=== PATIENT | female | born 1975 | race Caucasian/White ===

== ENCOUNTER 2016-04-24 14:46 | Emergency (ER) | payer BC, SELFPAY ==
[2016-04-24 16:09] LABS: Troponin I Less than 0.010 ng/mL (< 0.028)
[2016-04-24] MEDS ORDERED: Magnesium Citrate 300 ML BOT ONE (16:49)
--- NOTE | 2016-04-24 17:53 | ERRECORD ---
[facility] EMERGENCY RECORD HPI CHEST PAIN (15:13 WMEI) CHIEF COMPLAINT: Patient presents for evaluation of chest pain, ongoing. HISTORIAN: History provided by patient. LOCATION: Symptoms are localized, most severe in the left upper chest. QUALITY: Pain is dull in nature. TIME COURSE: Gradual onset of symptoms, Date and time of onset was 04/23/2016 15:13. ASSOCIATED WITH: No associated chills, No associated cough, No associated diaphoresis, No associated fever, No associated nausea, No associated shortness of breath. EXACERBATED BY: Patient's condition exacerbated by nothing. RELIEVED BY: Patient's condition relieved by nothing. ROS (15:14 WMEI) CONSTITUTIONAL: Historian denies chills, denies fever. EYES: Historian denies eye pain, denies eye discharge. ENT: Historian denies rhinorrhea, denies sore throat. CARDIOVASCULAR: Historian reports chest pain, denies diaphoresis, denies orthopnea. GI: Historian denies nausea, denies vomiting. MUSCULOSKELETAL: Historian denies joint redness, reports joint stiffness, denies joint swelling. SKIN: Historian denies skin changes, denies skin lesions. NEUROLOGIC: Historian denies dizziness, denies mental status changes. ALLERGIC/IMMUNOLOGIC: Historian denies eczema, denies food allergies. PSYCHIATRIC: Historian denies alcohol abuse. PAST MEDICAL HISTORY (14:55 KMOR) MEDICAL HISTORY: Flu vaccine up to date, Tetanus immunization up to date, Pneumococcal vaccine not up to date, Notes: MIXED CONNECTIVE TISSUE DISORDER, VERTIGO. FEMALE SURGICAL HISTORY: RIGHT FOOT ORIF, Surgical history of oophorectomy, of the left ovary. PSYCHIATRIC HISTORY: No previous psychiatric history. SOCIAL HISTORY: Patient denies alcohol use, Patient denies drug use, Patient has no smoking history. KNOWN ALLERGIES morphine: Reaction: Anaphylaxis, Severity: Severe CURRENT MEDICATIONS Plaquenil: TABLET : Strength - 200 mg : ORAL Patient Dose: 800 mg Oral once a day. (15:02 KMOR) Cymbalta: CAPSULE,DELAYED RELEASE (ENTERIC COATED) : Strength - 30 mg : ORAL &a-1R&a+25V*p+0X*o1740Y*c202B*c15G*c2P*p-0X&a-25V&a+1R Name: Kathy Olivo : 1975 F41 MedRec: [id number] AcctNum: [id number] Prepared: Karen Apr 24, 2016 22:58 by Interface Page 1 of 3 pMD [facility] EMERGENCY RECORD Patient Dose: 800 mg Oral. (15:03 KMOR) methotrexate: POWDER (GRAM) : MISCELLANEOUS Patient Dose: 25 units once a week. (15:05 KMOR) Folbic: TABLET : Strength - 2 mg-2.5 mg-25 mg : ORAL Patient Dose: Unknown. (15:06 KMOR) VITAL SIGNS VITAL SIGNS: BP: 145/74, Pulse: 78, Resp: 18, Temp: 98.2 (Oral), Pain: 5, O2 sat: 96 on Room Air, Time: 04/24/2016 14:53. (14:53 KMOR) BP: 122/79, Pulse: 82, Resp: 18, Pain: 5, O2 sat: 99 on Room Air, Time: 04/24/2016 15:53. (15:53 AHOO) BP: 140/77, Pulse: 80, Resp: 18, Temp: 98.3 (Oral), O2 sat: 97 on Room Air, Time: 04/24/2016 17:12. (17:12 KMOR) Pain: 5, Time: 04/24/2016 17:25. (17:25 AHOO) PHYSICAL EXAM (15:17 WMEI) CONSTITUTIONAL: Vital Signs Reviewed, Patient appears non toxic, Patient alert and oriented to person, place and time. HEAD: Head exam included findings of head atraumatic, normocephalic. EYES: Conjunctiva normal, Sclera normal. ENT: Ear exam normal, Nose exam normal, Pharynx exam normal. NECK: Neck exam included findings of normal range of motion, Trachea midline. RESPIRATORY CHEST: Respiratory exam included findings of no respiratory distress, Breath sounds clear, Chest exam included findings of chest movement symmetrical. CARDIOVASCULAR: Heart rate regular rate and rhythm, Heart sounds normal. ABDOMEN FEMALE: Abdominal exam included findings of abdomen nontender, Liver normal, Spleen normal. UPPER EXTREMITY: Upper extremity exam included findings of inspection normal, Range of motion normal, Motor strength normal. NEURO: Edward coma scale 15, Neuro exam findings include patient oriented to person, place and time, Speech normal, Gait normal. SKIN: Skin exam included findings of skin warm, dry. LYMPHATIC: Lymphatic exam normal. PSYCHIATRIC: Psychiatric exam included findings of patient oriented to person place and time, Normal affect, Judgment normal, Insight normal. 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 MEDICATION ADMINISTRATION SUMMARY Drug Name: aspirin oral, Dose Ordered: 324 mg, Route: Oral, Status: &a-1R&a+25V*p+0X*w2685M*c202B*c15G*c2P*p-0X&a-25V&a+1R Name: Kathy Olivo : 1975 1 MedRec: [id number] AcctNum: [id number] Prepared: ThuApr 24, 2016 22:58 by Interface Page 2 of 3 pMD [facility] EMERGENCY RECORD Given, Time: 15:32 04/24/2016, Detailed record available in Medication Service section. PROBLEM LIST No recorded problems DIAGNOSIS (17:21 WMEI) FINAL: PRIMARY: Chest Pain, unspecified. PRESCRIPTION No recorded prescriptions DISPOSITION PATIENT: Disposition Type: Discharge, Disposition: *Discharge Home. (17:21 WMEI) Patient left the department. (17:36 AHOO) Pope: AHOO=JEN Ocampo, July KMOR=JOEY Blum, Evi WMEI=DO Arciniega William &a-1R&a+25V*p+0X*m5019J*c202B*c15G*c2P*p-0X&a-25V&a+1R Name: Kathy Olivo Tanner : 1975 Counts Include [facility] B[facility] At [facility] MedRec: [id number] AcctNum: [id number] Prepared: ThuApr 24, 2016 22:58 by Interface Page 3 of 3 pMD MTDD
--- NOTE | 2016-04-24 17:53 | PICIS ---
[facility] EMERGENCY RECORD TRIAGE (ThuApr 24, 2016 14:52 KMOR) TRIAGE NOTES: Left sided chest pain, seen at urgent care this morning and chest xray and ekg completed, called and told had an elevated ddimer and needed come in for work. (ThuApr 24, 2016 14:52 KMOR) PATIENT: NAME: Kathy Olivo, AGE: 41, GENDER: female, : Thu1975, TIME OF GREET: ThuApr 24, 2016 14:47, PREFERRED LANGUAGE: Tajik, ETHNICITY: Not or , ECODE BILLING MAP: [facility], SSN: [id number], Zip Code: [address], KG WEIGHT: 76.20, PHONE: , , , PERSON ID: [id number], PCP: DO CABRERA KRISTEL. (ThuApr 24, 2016 14:52 KMOR) PAYMENT: [employer]. (15:00) COMPLAINT: HIGH RISK COMPLAINT: Chest Pain. (ThuApr 24, 2016 14:52 KMOR) ADMISSION: URGENCY: 3 Urgent, ADMISSION SOURCE: Home, TRANSPORT: CAR, BED: ER -03. (ThuApr 24, 2016 14:52 KMOR) ASSESSMENT: Assessment: A&XO4. RR EVEN AND UNLABORED. (14:55 KMOR) PAIN: Patient complains of pain described as, aching, on a scale 0-10 patient rates pain as 5, Location LEFT CHEST. (14:55 KMOR) SIRS SCORING: Heart Rate 55-109 (0), Temp range 96.8-101.1 (0), respiratory rate 12-24 (0), Mental Status altered: no (0), Infection or Suspected Infection: No. (14:55 KMOR) TRIAGE SCREENING: Patient denies suicidal ideation, Patient denies presence of domestic violence. (14:55 KMOR) LMP: Last menstrual period: 04/10/2016. (14:55 KMOR) PROVIDERS: TRIAGE NURSE: Evi Blum RN. (Karen Apr 24, 2016 14:52 KMOR) VITAL SIGNS: BP 145/74, Pulse 78, Resp 18, Temp 98.2, (Oral), Pain 5, O2 Sat 96, on Room Air, Time 04/24/2016 14:53. (14:53 KMOR) PREVIOUS VISIT ALLERGIES: morphine. (ThuApr 24, 2016 14:52 KMOR) morphine. (14:55 KMOR) KNOWN ALLERGIES morphine: Reaction: Anaphylaxis, Severity: Severe CURRENT MEDICATIONS Plaquenil: TABLET : Strength - 200 mg : ORAL Patient Dose: 800 mg Oral once a day. (15:02 KMOR) Cymbalta: CAPSULE,DELAYED RELEASE (ENTERIC COATED) : Strength - 30 mg : ORAL Patient Dose: 800 mg Oral. (15:03 KMOR) methotrexate: POWDER (GRAM) : MISCELLANEOUS Patient Dose: 25 units once a week. (15:05 KMOR) Folbic: TABLET : Strength - 2 mg-2.5 mg-25 mg : ORAL &a-1R&a+25V*p+0X*u0540E*c202B*c15G*c2P*p-0X&a-25V&a+1R Name: GeovaniYazanKathy L : 1975 F41 MedRec: [id number] AcctNum: [id number] Prepared: ThuApr 24, 2016 23:04 by Interface Page 1 of 7 pMD [facility] EMERGENCY RECORD Patient Dose: Unknown. (15:06 KMOR) VITAL SIGNS VITAL SIGNS: BP: 145/74, Pulse: 78, Resp: 18, Temp: 98.2 (Oral), Pain: 5, O2 sat: 96 on Room Air, Time: 04/24/2016 14:53. (14:53 KMOR) BP: 122/79, Pulse: 82, Resp: 18, Pain: 5, O2 sat: 99 on Room Air, Time: 04/24/2016 15:53. (15:53 AHOO) BP: 140/77, Pulse: 80, Resp: 18, Temp: 98.3 (Oral), O2 sat: 97 on Room Air, Time: 04/24/2016 17:12. (17:12 KMOR) Pain: 5, Time: 04/24/2016 17:25. (17:25 AHOO) NURSING ASSESSMENT: CARDIOVASCULAR (16:28 KMOR) CONSTITUTIONAL: Patient arrives ambulatory, Gait steady, History obtained from patient, Patient appears comfortable, Patient cooperative, Patient alert, Oriented to person, place and time, Skin warm, Skin dry, Skin normal in color, Mucous membranes pink, Mucous membranes moist, Patient is well-groomed, Patient complains of Elevated ddimer, Patient reports she was seen at an urgent care today for chest pain, reports was called to come to [facility] due to elevated Ddimer. PAIN: deep pain, to the left chest, on a scale 0-10 patient rates pain as 5. CARDIOVASCULAR: Cardiovascular assessment findings include heart rate normal, Heart rhythm normal sinus, Heart sounds normal, S1, S2, Left radial pulse +3(easily palpated, considered normal), Right radial pulse +3(easily palpated, considered normal), no associated dizziness, no associated edema, no associated palpitations, no associated syncopal episode. RESPIRATORY/CHEST: Breath sounds clear, Respiratory assessment findings include respiratory effort easy, Respirations regular, Conversing normally, Neck and chest exam findings include trachea midline, Chest expansion equal, Chest movement symmetrical, no signs of distress, no associated cough noted. NOTES: Patient tolerated procedure well. NURSING PROCEDURE: DISCHARGE NOTE (17:27 AHOO) DISCHARGE: Patient discharged to home, ambulating without assistance, driving self, unaccompanied, Summary of Care printed/ provided, Transition record given to patient, Discharge instructions given to patient, Above person(s) verbalized understanding of discharge instructions and follow-up care, Patient treated and evaluated by physician. NURSING PROCEDURE: EKG CHART (15:25 AHOO) PATIENT IDENTIFIER: Patient actively involved in identification process, Patient's identity verified by patient stating name, Patient's identity verified by patient stating date, Patient's identity verified by hospital ID bracelet. EKG: EKG indicated for ELEVATED D-DIMER, 12 lead EKG performed on the left chest, done by KIMBERLY SEPULVEDA LVN, first EKG. &a-1R&a+25V*p+0X*d7585M*c202B*c15G*c2P*p-0X&a-25V&a+1R Name: Kathy Olivo : 1975 F41 MedRec: [id number] AcctNum: [id number] Prepared: Karen Apr 24, 2016 23:04 by Interface Page 2 of 7 pMD [facility] EMERGENCY RECORD FOLLOW-UP: After procedure, EKG for interpretation given to Dr. DR ARCINIEGA. NURSING PROCEDURE: IV PATIENT IDENITIFIER: Patient actively involved in identification process, Patient's identity verified by patient stating name, Patient's identity verified by patient stating date. (16:27 KMOR) IV SITE 1: IV therapy indicated for hydration, IV therapy indicated for medication administration, IV established, to the left antecubital, using an 18 gauge catheter, Saline lock established, Flushed with normal saline (mls): 10cc. (16:27 KMOR) FOLLOW-UP SITE 1: After procedure, 2x3 ensure dressing applied. (16:27 KMOR) After procedure, 2x2 dressing applied, After procedure, no drainage at IV site, After procedure, no swelling at IV site, After procedure, no redness at IV site, IV discontinued, due to patient being discharged, catheter intact. (17:22 AHOO) NURSING PROCEDURE: NURSE NOTES (15:01 KMOR) NURSES NOTES: Notes: Called [facility] to get records for patient visit today. NURSING PROCEDURE: TRANSPORT TO TESTS PATIENT IDENTIFIER: Patient actively involved in identification process, Patient's identity verified by patient stating name, Patient's identity verified by patient stating date. (16:45 KMOR) TRANSPORT TO TESTS: Transport indicated to facilitate diagnosis, Patient transported to CT scan, via wheelchair, Accompanied by x-ray patient services technician. (16:45 KMOR) FOLLOW-UP: After procedure, patient returned to emergency department. (16:56 KMOR) ORDER DETAILS Order Name: Cardiac Profile w/CKMB & Troponin - I, Status: Active, Time: 15:20 04/24/2016, User: YAKOV, - Ordered for: DO Arciniega William, - Entered by: DO Arciniega William - [facility] Apr 24, 2016 15:20, - Quantity: 1, Order Name: CTA Angio Chest W WO Con(PE Protocol), Status: Active, Time: 16:08 04/24/2016, User: YAKOV, - Ordered for: DO Arciniega William, - Entered by: DO Arciniega William - [facility] Apr 24, 2016 16:08, - Quantity: 1, Order Name: D-Dimer (Quantitative), Status: Active, Time: 15:20 04/24/2016, User: YAKOV, - Ordered for: DO Arciniega William, - Entered by: DO Arciniega William - ThuApr 24, 2016 15:20, &a-1R&a+25V*p+0X*s3091Z*c202B*c15G*c2P*p-0X&a-25V&a+1R Name: Kathy Olivo : 1975 F41 MedRec: [id number] AcctNum: [id number] Prepared: ThuApr 24, 2016 23:04 by Interface Page 3 of 7 pMD [facility] EMERGENCY RECORD - Quantity: 1, Order Name: EKG 12 Lead in Emergency Room, Status: Active, Time: 15:12 04/24/2016, User: YAKOV, - Ordered for: DO Arciniega William, - Entered by: DO Arciniega William - ThuApr 24, 2016 15:12, - Quantity: 1, Order Name: Test, Urine (CG), Status: Active, Time: 16:08 04/24/2016, User: YAKOV, - Ordered for: DO Arciniega William, - Entered by: DO Arciniega William - ThuApr 24, 2016 16:08, - Quantity: 1, Order Name: SALINE LOCK, Status: Done, Time: 16:30 04/24/2016, User: JORDAN, - Ordered for: DO Arciniega William, - Entered by: JOEY Blum Krista - ThuApr 24, 2016 16:30, - Quantity: 1. MEDICATION ADMINISTRATION SUMMARY Drug Name: aspirin oral, Dose Ordered: 324 mg, Route: Oral, Status: Given, Time: 15:32 04/24/2016, Detailed record available in Medication Service section. MEDICATION SERVICE aspirin oral: Order: aspirin oral (aspirin) - Dose: 324 mg : Oral Ordered by: Jai Arciniega DO Entered by: Jai Arciniega DO ThuApr 24, 2016 15:30 , Acknowledged by: Kimberly Sepulveda LVN ThuApr 24, 2016 15:32 Documented as given by: Jai Arciniega DO ThuApr 24, 2016 15:32 Patient, Medication, Dose, Route and Time verified prior to administration. Verbal order read back and verified, Amount given: 324, Patient appears Awake and alert- acceptable, Patient in position of comfort, Family at bedside. : Follow Up : Response assessment performed, No signs or symptoms of allergic reaction noted. (17:25 AHOO) HPI CHEST PAIN (15:13 WMEI) CHIEF COMPLAINT: Patient presents for evaluation of chest pain, ongoing. HISTORIAN: History provided by patient. LOCATION: Symptoms are localized, most severe in the left upper chest. QUALITY: Pain is dull in nature. TIME COURSE: Gradual onset of symptoms, Date and time of onset was 04/23/2016 15:13. ASSOCIATED WITH: No associated chills, No associated cough, No associated diaphoresis, No associated fever, No associated nausea, No associated shortness of breath. &a-1R&a+25V*p+0X*j6366J*c202B*c15G*c2P*p-0X&a-25V&a+1R Name: Kathy Olivo : 1975 F41 MedRec: [id number] AcctNum: [id number] Prepared: Karen Apr 24, 2016 23:04 by Interface Page 4 of 7 pMD [facility] EMERGENCY RECORD EXACERBATED BY: Patient's condition exacerbated by nothing. RELIEVED BY: Patient's condition relieved by nothing. ROS (15:14 WMEI) CONSTITUTIONAL: Historian denies chills, denies fever. EYES: Historian denies eye pain, denies eye discharge. ENT: Historian denies rhinorrhea, denies sore throat. CARDIOVASCULAR: Historian reports chest pain, denies diaphoresis, denies orthopnea. GI: Historian denies nausea, denies vomiting. MUSCULOSKELETAL: Historian denies joint redness, reports joint stiffness, denies joint swelling. SKIN: Historian denies skin changes, denies skin lesions. NEUROLOGIC: Historian denies dizziness, denies mental status changes. ALLERGIC/IMMUNOLOGIC: Historian denies eczema, denies food allergies. PSYCHIATRIC: Historian denies alcohol abuse. PAST MEDICAL HISTORY (14:55 KMOR) MEDICAL HISTORY: Flu vaccine up to date, Tetanus immunization up to date, Pneumococcal vaccine not up to date, Notes: MIXED CONNECTIVE TISSUE DISORDER, VERTIGO. FEMALE SURGICAL HISTORY: RIGHT FOOT ORIF, Surgical history of oophorectomy, of the left ovary. PSYCHIATRIC HISTORY: No previous psychiatric history. SOCIAL HISTORY: Patient denies alcohol use, Patient denies drug use, Patient has no smoking history. PHYSICAL EXAM (15:17 WMEI) CONSTITUTIONAL: Vital Signs Reviewed, Patient appears non toxic, Patient alert and oriented to person, place and time. HEAD: Head exam included findings of head atraumatic, normocephalic. EYES: Conjunctiva normal, Sclera normal. ENT: Ear exam normal, Nose exam normal, Pharynx exam normal. NECK: Neck exam included findings of normal range of motion, Trachea midline. RESPIRATORY CHEST: Respiratory exam included findings of no respiratory distress, Breath sounds clear, Chest exam included findings of chest movement symmetrical. CARDIOVASCULAR: Heart rate regular rate and rhythm, Heart sounds normal. ABDOMEN FEMALE: Abdominal exam included findings of abdomen nontender, Liver normal, Spleen normal. UPPER EXTREMITY: Upper extremity exam included findings of inspection normal, Range of motion normal, Motor strength normal. NEURO: Edward coma scale 15, Neuro exam findings include patient oriented to person, place and time, Speech normal, Gait normal. SKIN: Skin exam included findings of skin warm, dry. &a-1R&a+25V*p+0X*w2949H*c202B*c15G*c2P*p-0X&a-25V&a+1R Name: Kathy Olivo : 1975 F41 MedRec: [id number] AcctNum: [id number] Prepared: ThuApr 24, 2016 23:04 by Interface Page 5 of 7 pMD [facility] EMERGENCY RECORD LYMPHATIC: Lymphatic exam normal. PSYCHIATRIC: Psychiatric exam included findings of patient oriented to person place and time, Normal affect, Judgment normal, Insight normal. EVENTS TRANSFER: Triage to Emergency Emergency Room -03. (ThuApr 24, 2016 14:52 KMOR) Removed from Emergency Emergency Room -03. 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 PROBLEM LIST No recorded problems DIAGNOSIS (17:21 WMEI) FINAL: PRIMARY: Chest Pain, unspecified. DISPOSITION PATIENT: Disposition Type: Discharge, Disposition: *Discharge Home. (17:21 WMEI) Patient left the department. (17:36 AHOO) INSTRUCTION (17:22 WMEI) DISCHARGE: CHEST PAIN, NONCARDIAC. FOLLOWUP: DO CABRERA KRISTEL, [facility], [address] [address], [phone]. SPECIAL: Follow-up with your primary physician as needed. PRESCRIPTION No recorded prescriptions IMAGING *EKG: Image captured from scanner. (15:45 AHOO) OUTSIDE RECORDS: Image captured from scanner. (15:46 AHOO) Page 2 added. Image captured from scanner. (15:46 AHOO) Page 3 added. Image captured from scanner. (15:46 AHOO) Page 4 added. Image captured from scanner. (15:46 AHOO) Page 5 added. Image captured from scanner. (15:47 AHOO) Page 6 added. Image captured from scanner. (15:47 AHOO) *DISCHARGE INSTRUCTIONS RECEIPT: Image captured from scanner. (17:34 AHOO) *SUPPLY CHARGE SHEET: Image captured from scanner. (17:34 AHOO) ADMIN (22:49 WMEI) DIGITAL SIGNATURE: DO Arciniega William. RESULTS (17:30 AHOO) &a-1R&a+25V*p+0X*s0028U*c202B*c15G*c2P*p-0X&a-25V&a+1R Name: Kathy Olivo : 1975 F41 MedRec: [id number] AcctNum: [id number] Prepared: ThuApr 24, 2016 23:04 by Interface Page 6 of 7 pMD [facility] EMERGENCY RECORD LABORATORY: Test, Urine (BHCG) Collection DT: ThuApr 24, 2016 16:17, Test - Urine (BHCG) NEGATIVE , Range (NEGATIVE), Method of sensitivity- Indeterminant: results should be repeated, after 48 hours. Positive: results may be detected as early as 4-5 days before a first missed menses. Elimination of BHCG-, Elimination following first trimester D&C: 29-44 Days , Elimination following term : 8-24 Days , Specific [place] 1.007 , Range (1.002-1.036), A dilute urine specimen may, not contain community engagement representative levels of hCG. If is still, suspected, a first morning urine specimen OR a random blood specimen should, be obtained from the patient 48-72 hours later and re-tested. , . Cardiac Profile w/CKMB & TropI Collection DT: ThuApr 24, 2016 15:46, CKMB 5.1 ng/mL, Range (0-6.6), Troponin I Less than 0.010 ng/mL, Range (< 0.028), Reference Range , 0.00 - 0.028 ng/mL Negative 0.029 - 0.29 ng/mL , Indeterminate Greater or Equal to 0.3 ng/mL Strongly suggests SC , . D-Dimer (Quantitative) Collection DT: ThuApr 24, 2016 15:46, *D-Dimer Test 0.67 - H *mcg/mL, Range (0.27-0.43), * Reference Range Units: mcg/mL of fibrinogen equivalent, units(FEU) Based upon a retrospective study of [facility] patients in August 2005, a result of Less than 0.44 mcg/mL FEU is, predictive of the absence of a DVT or PE. . Pope: AHOO=JEN Sepulveda, July KMOR=JOEY Blum, Evi WMEI=DO Arciniega William &a-1R&a+25V*p+0X*m3141Q*c202B*c15G*c2P*p-0X&a-25V&a+1R Name: Kathy Olivo : 1975 F41 MedRec: [id number] AcctNum: [id number] Prepared: ThuApr 24, 2016 23:04 by Interface Page 7 of 7 pMD MTDD
--- NOTE | 2016-04-24 21:02 | CT ---
CT ANGIO OF THE CHEST WITH CONTRAST 04/24/[address] of the chest was performed after a bolus of IV contrast to evaluate chest pain and an elev ated D-dimer. Axial slices were acquired after a bolus of IV contrast. Coronal and oblique coronal r eformations through the pulmonary arteries were done afterwards. There is very good opacification of the pulmonary arterial system. There are no filling defects to s uggest emboli. The aorta shows no sign of dissection or aneurysm. There is no evidence of mediastina l mass or hematoma. The heart size is normal and there is no sign of pericardial fluid. The lungs are clear. No infiltrate or effusion was seen. No worrisome pulmonary nodules were seen. The study went a few slices into the upper abdomen, and the visible structures here were unremarkabl e. The visible thoracic vertebra and paravertebral regions were unremarkable as well. IMPRESSION: No evidence pulmonary embolism. No significant thoracic findings. POS: HOME
== END 2016-04-24 17:27 | disposition home or self-care (01) ==
LOC: BURERS 14:46
DX: R07.9 Chest pain, unspecified (principal); Z79.899 Other long term (current) drug therapy
CPT/HCPCS: 36415; 71275; 81025; 82553; 84484; 85379; 93005

== ENCOUNTER 2016-07-17 08:59 | Outpatient (CLI) | payer OTHER ==
--- NOTE | 2016-07-17 21:19 | RAD ---
LEFT FOOT THREE VIEWS 07/17/16 No acute fracture was appreciated. All bones appeared intact. A small calcaneal spur was noted. IMPRESSION: No acute findings. POS: HOME
== END 2016-07-17 09:00 | disposition home or self-care (01) ==
LOC: BURRAD 08:59
PROVIDERS: ATTEND Family Medicine
DX: M79.672 Pain in left foot (principal)

== ENCOUNTER 2018-04-22 20:51 | Emergency (ER) | payer BC, OTHER ==
[2018-04-22] MEDS ORDERED: Adacel (T-DAP) 0.5 ML SYRINGE ONE (21:00)
[2018-04-22] MEDS ORDERED: Bacitracin Zinc 1 Packet ONE (21:27)
[2018-04-22] MEDS ORDERED: Cephalexin 500 MG CAP ONE (21:50)
== END 2018-04-22 22:04 | disposition home or self-care (01) ==
LOC: BURERS 20:51
DX: S61.011A Laceration without foreign body of right thumb without damage to nail, initial encounter (principal); Z79.899 Other long term (current) drug therapy; W26.8XXA Contact with other sharp object(s), not elsewhere classified, initial encounter
CPT/HCPCS: 12002; 90471; 90715